=== PATIENT | male | born 1990 | race Caucasian/White ===

== ENCOUNTER 2022-02-19 10:04 | Emergency (ER) | payer SELFPAY ==
[2022-02-19] MEDS ORDERED: Acetaminophen 500 MG Tab PO ONE (11:04)
[2022-02-19 11:09] LABS: CORONAVIRUS COVID-19 NAA NEGATIVE (NEGATIVE); INFLUENZA A NAA NEGATIVE (NEGATIVE); INFLUENZA B NAA NEGATIVE (NEGATIVE)
== END 2022-02-19 11:39 | disposition home or self-care (01) ==
LOC: MW.ED 10:04
DX: B34.9 Viral infection, unspecified (principal); F17.210 Nicotine dependence, cigarettes, uncomplicated; Z20.822 Contact with and (suspected) exposure to COVID-19
CPT/HCPCS: 0240U; 93005; 99283; A9270

== ENCOUNTER 2022-03-16 10:22 | Emergency (ER) | payer SELFPAY ==
[2022-03-16] MEDS ORDERED: Sodium Chloride 0.9% 10 ML Syringe FLUSH PRN (11:04)
[2022-03-16] MEDS ORDERED: Sodium Chloride 0.9% 2.5 ML Syringe FLUSH PRN (11:04)
[2022-03-16] MEDS ORDERED: Ondansetron 4 MG/2 ML SDV IVPUSH ONE (11:05)
[2022-03-16] MEDS ORDERED: Folic Acid 1 MG Tab PO ONE (11:05)
[2022-03-16] MEDS ORDERED: Thiamine 100 MG Tab PO ONE (11:05)
[2022-03-16] MEDS ORDERED: chlordiazePOXIDE 25 MG Cap PO ONE (11:23)
[2022-03-16 11:48] LABS: BLOOD UREA NITROGEN,BUN 8 mg/dL (7.0-18.0); CARBON DIOXIDE,CO2 28.5 mmol/L (21.0-32.0); CHLORIDE,CL 97 mmol/L (98-107); GLUCOSE RANDOM 99 mg/dL (74-106); LIPASE 105 U/L (73-393); POTASSIUM,K 3.4 mmol/L (3.5-5.1); SODIUM,NA 137 mmol/L (136-148)
[2022-03-16 11:50] LABS: ESTIMATED GFR 132 mL/min (>60)
[2022-03-16] MEDS ORDERED: Magnesium Sulfate/Water 2 GM in Premix Bag 1 BAG IV ONE (12:03)
[2022-03-16] MEDS ORDERED: Lactated Ringers 1,000 ML IV ONE (12:04)
== END 2022-03-16 14:33 | disposition home or self-care (01) ==
LOC: MW.ED 10:22
DX: F10.239 Alcohol dependence with withdrawal, unspecified (principal); E87.6 Hypokalemia; E83.42 Hypomagnesemia; F17.210 Nicotine dependence, cigarettes, uncomplicated
CPT/HCPCS: 36415; 71045; 76705; 80053; 80307; 83690; 83735; 85025; 96365; 96366; 96375; 99285; A9270; J2405; J3475; J3490; J7120; 99284

== ENCOUNTER 2022-09-01 15:07 | Emergency (ER) | payer BC | END 2022-09-01 16:00 | disposition left against medical advice (07) | LOC: MW.ED 15:07 | DX: Z53.21 Procedure and treatment not carried out due to patient leaving prior to being seen by health care provider (principal) ==

== ENCOUNTER 2023-06-16 22:06 | Emergency (ER) | payer SELFPAY | END 2023-06-16 23:16 | disposition left against medical advice (07) | LOC: MW.ED 22:06 | DX: Z53.21 Procedure and treatment not carried out due to patient leaving prior to being seen by health care provider (principal) ==

== ENCOUNTER 2023-07-15 12:14 | Emergency (ER) | payer MEDICAID ==
[2023-07-15 14:07] LABS: BASOPHILS ABSOLUTE AUTO 0.05 K/uL (0.00-0.20); BASOPHILS PERCENT AUTO 1.9 % (0.0-1.0); EOSINOPHILS ABSOLUTE AUTO 0.15 K/uL (0.00-0.45); EOSINOPHILS PERCENT AUTO 5.6 % (0.0-6.0); HEMATOCRIT 42.8 % (42.0-52.0); HEMOGLOBIN 15.3 g/dL (14.0-18.0); IMMATURE GRAN ABSOLUTE AUTO 0.01 K/uL (0.00-0.05); IMMATURE GRAN PERCENT AUTO 0.4 % (0.0-0.4); LYMPHOCYTES ABSOLUTE AUTO 1.16 K/uL (1.00-4.80); LYMPHOCYTES PERCENT AUTO 43.4 % (24.0-44.0); MEAN CORPUSCULAR HEMOGLOBIN 33.3 pg (28.0-32.0); MEAN CORPUSCULAR HGB CONC 35.7 g/dL (32.0-36.0); MEAN CORPUSCULAR VOLUME 93.2 fL (83.0-99.0); MEAN PLATELET VOLUME 9.6 fL (9.4-12.4); MONOCYTES ABSOLUTE AUTO 0.31 K/uL (0.00-0.80); MONOCYTES PERCENT AUTO 11.6 % (0.0-8.0); NEUTROPHILS ABSOLUTE AUTO 0.99 K/uL (1.80-7.70); NEUTROPHILS PERCENT AUTO 37.1 % (41.0-71.0); PLATELET COUNT,PLT 89 K/uL (150-400); RED BLOOD CELL COUNT 4.59 M/uL (4.52-5.90); WHITE BLOOD CELL COUNT,WBC 2.67 K/uL (3.9-11.3)
[2023-07-15 14:43] LABS: A/G RATIO 0.9 (0.9-1.6); ALBUMIN 3.8 g/dL (3.4-5.0); BILIRUBIN TOTAL 0.9 mg/dL (0.2-1.0); CALCIUM 8.5 mg/dL (8.5-10.1); CARBON DIOXIDE,CO2 26.2 mmol/L (21.0-32.0); CREATININE 0.9 mg/dL (0.8-1.3); POTASSIUM,K 3.5 mmol/L (3.5-5.1)
== END 2023-07-15 14:09 | disposition home or self-care (01) ==
LOC: MW.ED 12:14
DX: F10.130 Alcohol abuse with withdrawal, uncomplicated (principal); D69.6 Thrombocytopenia, unspecified; Z75.8 Other problems related to medical facilities and other health care; Z79.899 Other long term (current) drug therapy; Y90.9 Presence of alcohol in blood, level not specified
CPT/HCPCS: 36415; 80053; 83735; 85025; 99283; 99284